=== PATIENT | male | born 2000 | race Caucasian/White ===

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

== ENCOUNTER 2022-03-03 18:13 | Emergency (ER) | payer OTHER ==
--- NOTE | 2022-03-03 18:59 | ED ---
General Adult HPI - General Chief complaint: Urogenital Stated complaint: Male Time Seen by Provider: 03/03/22 18:46 Source: patient Mode of arrival: ambulatory Limitations: no limitations - History of Present Illness Initial comments: Patient presents to the ED complaining of having right testicular swelling and pain for the past 2 days or so. Patient states that he has had similar symptoms in the past without explanation. Patient states that he had surgery for an undescended left testicle as an . Patient admits to being sexually active with multiple partners. Patient denies known history of STD. Patient denies known trauma or injury, fever or chills, headache, chest pain, dyspnea, dizziness, abdominal pain, back or flank pain, nausea or vomiting, penile swelling, penile discharge, dysuria/hematuria/urinary frequency/urinary symptoms, or any other symptoms or complaints. - Related Data Previous Rx's Medication Instructions Recorded Doxycycline Hyclate 100 mg PO BID 10 Days #20 tab 03/03/22 Allergies Allergy/AdvReac Type Severity Reaction Status Date / Time amoxicillin Allergy Rash/Hives Verified 03/03/22 20:04 clavulanic acid Allergy Rash/Hives Verified 03/03/22 20:04 [From Augmentin] Review of Systems ROS Statement: Those systems with pertinent positive or pertinent negative responses have been documented in the HPI. ROS Other: All systems not noted in ROS Statement are negative. Past Medical History Past Medical History: No Reported History History of Any Multi-Drug Resistant Organisms: None Reported Additional Past Surgical History / Comment(s): L testicle surgery Past Psychological History: ADD/ADHD Smoking Status: Current every day smoker, Never smoker Past Alcohol Use History: None Reported Past Drug Use History: Marijuana General Exam Limitations: no limitations General appearance: alert, in no apparent distress Head exam: Present: atraumatic, normocephalic Eye exam: Present: normal appearance, EOMI ENT exam: Present: mucous membranes moist Respiratory exam: Present: normal lung sounds bilaterally. Absent: respiratory distress, wheezes, rales, rhonchi, stridor Cardiovascular Exam: Present: regular rate, normal rhythm, normal heart sounds, other (Normal radial pulses bilaterally) GI/Abdominal exam: Present: soft. Absent: distended, tenderness, guarding exam: Present: other (Mild right testicular tenderness; no hernia mass or defect is appreciated; normal right cremasteric reflex). Absent: urethral discharge, scrotal swelling Back exam: Absent: CVA tenderness (R), CVA tenderness (L) Neurological exam: Present: alert, oriented X3 Psychiatric exam: Present: normal affect, normal mood Skin exam: Present: warm, dry, intact, normal color Course Vital Signs 03/03/22 18:25 Temperature 99.1 F Pulse Rate 111 H Respiratory 16 Rate Blood Pressure 131/78 O2 Sat by Pulse 99 Oximetry - Reevaluation(s) Reevaluation #1: 03/03/22 21:40 Patient denies development of any new symptoms while in the ED. Patient is aware of his test results, and he feels comfortable being discharged home at this time. Patient was counseled about testicular pain and epididymitis. Patient was clearly explained return and follow-up instructions, and he feels comfortable with this plan. Medical Decision Making - Medical Decision Making Patient's UA and scrotal ultrasound are fairly unremarkable. Patient is sexually active, and he has mild right testicular tenderness on examination. Given these findings, I suspect possible epididymitis as the etiology of the patient's pain. Will treat the patient with a dose of IM Rocephin in the ED and discharge the patient home on a course of oral doxycycline. Patient was instructed to follow up closely with his primary care provider. Patient feels comfortable this plan. - Lab Data Lab Results 03/03/22 Range/Units 20:28 Urine Color Yellow Urine Appearance Clear (Clear) Urine pH 6.0 (5.0-8.0) Ur Specific [place] 1.030 (1.001-1.035) Urine Protein Negative (Negative) Urine Glucose (UA) Negative (Negative) Urine Ketones Negative (Negative) Urine Blood Negative (Negative) Urine Nitrite Negative (Negative) Urine Bilirubin Negative (Negative) Urine Urobilinogen <2.0 (<2.0) mg/dL Ur Leukocyte Esterase Negative (Negative) - Radiology Data Scrotal ultrasound: No evidence of testicular torsion or mass. Normal left and right epididymis. Disposition Clinical Impression: Testicular pain, right Narrative: Possible epididymitis Disposition: HOME SELF-CARE Condition: Stable Instructions (If sedation given, give patient instructions): Epididymitis (ED), Testicle Pain (ED) Additional Instructions: Return to the ER immediately should you develop new or worsening pain, increased swelling, a fever, shortness of breath, feeling dizzy or faint, or new or worsening symptoms. Follow up closely with your primary care provider. Prescriptions: Doxycycline Hyclate 100 mg PO BID 10 Days #20 tab Is patient prescribed a controlled substance at d/c from ED?: No Referrals: Edith Mcdaniel DO [Primary Care Provider] - 1-2 days Time of Disposition: 21:45
--- NOTE | 2022-03-03 20:25 | US ---
EXAMINATION TYPE: US scrotum with doppler. Grayscale and color Doppler Duplex imaging performed of t micheal scrotum. DATE OF EXAM: 03/03/2022 COMPARISON: NONE CLINICAL HISTORY: Right testicular pain. EXAM MEASUREMENTS: TESTICLES: Right Testicle: 3.9 x 1.9 x 2.7 cm Left Testicle: 4.0 x 1.8 x 2.5 cm EPIDIDYMIS HEAD: Right Epididymis: 1.1 cm Left Epididymis: 0.8 cm Doppler performed to assess for testicular vascularity; good bilateral color flow and waveforms are s een. There is no evidence of testicular torsion. Presence of hydroceles: no Presence of varicoceles: no IMPRESSION: No evidence of testicular torsion or mass. Normal left and right epididymis.
[2022-03-03 21:23] LABS: Appearance,Urine Clear (Clear); Bilirubin,Urine Negative (Negative); Blood,Urine Negative (Negative); Color,Urine Yellow; Glucose,Urine (UA) Negative (Negative); Ketones,Urine Negative (Negative); Leukocyte Esterase,Urine Negative (Negative); Nitrite,Urine Negative (Negative); Protein,Urine Negative (Negative); Urobilinogen,Urine <2.0 mg/dL (<2.0)
[2022-03-03] MEDS ORDERED: cefTRIAXone 1 GM VIAL IM STA (21:32)
[2022-03-03] MEDS ORDERED: cefTRIAXone 250 MG VIAL IM STA (21:44)
[2022-03-03 22:02] VITALS: BP 136/84; PULSE 92; RESP 20; TEMP 98.9
== END 2022-03-03 22:00 | disposition home or self-care (01) ==
LOC: EC 18:13
DX: N50.811 Right testicular pain (principal); F17.200 Nicotine dependence, unspecified, uncomplicated; F12.90 Cannabis use, unspecified, uncomplicated
CPT/HCPCS: 81003; 87491; 87591; 93975; 76870; 99284; 96372; J0696

== ENCOUNTER 2022-03-05 08:58 | Emergency (ER) | payer OTHER ==
[2022-03-05 09:03] VITALS: TEMP 97.7
[2022-03-05] MEDS ORDERED: ACET/COD 300 MG/30 MG STARTER PACK 6 TAB BTL PO STA (09:31)
[2022-03-05] MEDS ORDERED: ONDANSETRON 4 MG ODT STARTER PACK 2 TAB BTL PO STA (09:31)
--- NOTE | 2022-03-05 09:32 | ED ---
General Adult HPI - General Chief complaint: Recheck/Abnormal Lab/Rx Stated complaint: Lower extremity Pain Time Seen by Provider: 03/05/22 09:14 Source: patient, RN notes reviewed Mode of arrival: ambulatory Limitations: no limitations - History of Present Illness Initial comments: 22-year-old male presents emergency Department with chief complaint right-sided testicular pain. Patient states this is having the past 2 seen here a few days ago was diagnosed with possible epididymitis. Patient states his present antibiotics which are doxycycline, did receive Rocephin. Patient states the episode of vomiting after taking Anything on her stomach. He complains of moderate discomfort in the right side. Patient denies any trauma he states he was icing and which has helped. No abdominal pain no fevers chills no other complaints. - Related Data Previous Rx's Medication Instructions Recorded Doxycycline Hyclate 100 mg PO BID 10 Days #20 tab 03/03/22 Ibuprofen [Motrin] 600 mg PO Q8HR PRN #20 tab 03/05/22 Allergies Allergy/AdvReac Type Severity Reaction Status Date / Time amoxicillin Allergy Rash/Hives Verified 03/05/22 09:01 clavulanic acid Allergy Rash/Hives Verified 03/05/22 09:01 [From Augmentin] Review of Systems ROS Statement: Those systems with pertinent positive or pertinent negative responses have been documented in the HPI. ROS Other: All systems not noted in ROS Statement are negative. Past Medical History Past Medical History: No Reported History History of Any Multi-Drug Resistant Organisms: None Reported Additional Past Surgical History / Comment(s): L testicle surgery Past Psychological History: ADD/ADHD Smoking Status: Current every day smoker, Never smoker Past Alcohol Use History: None Reported Past Drug Use History: Marijuana General Exam Limitations: no limitations General appearance: alert, in no apparent distress Head exam: Present: atraumatic, normocephalic, normal inspection Respiratory exam: Present: normal lung sounds bilaterally. Absent: respiratory distress, wheezes, rales, rhonchi, stridor Cardiovascular Exam: Present: regular rate, normal rhythm, normal heart sounds. Absent: systolic murmur, diastolic murmur, rubs, gallop, clicks GI/Abdominal exam: Present: soft, normal bowel sounds. Absent: distended, tenderness, guarding, rebound, rigid Course Vital Signs 03/05/22 09:01 Temperature 97.7 F Pulse Rate 78 Respiratory 16 Rate Blood Pressure 148/94 O2 Sat by Pulse 100 Oximetry Medical Decision Making - Medical Decision Making Patient ultrasound and urinalysis pending cultures. Patient was treated for epididymitis. Patient's had issues in the past with testicular pain in which she was doing pelvic exercises. Patient we treated for pain control this time return parameters were discussed. Patient has no acute changes. Disposition Clinical Impression: Testicular pain, right Disposition: HOME SELF-CARE Condition: Stable Instructions (If sedation given, give patient instructions): Testicle Pain (ED), Scrotal Pain (ED) Additional Instructions: Please return to the Emergency Department if symptoms worsen or any other concerns. Prescriptions: Ibuprofen [Motrin] 600 mg PO Q8HR PRN #20 tab PRN Reason: Pain Is patient prescribed a controlled substance at d/c from ED?: No Referrals: Edith Mcdaniel DO [Primary Care Provider] - 1-2 days Time of Disposition: 09:32
[2022-03-05 10:04] VITALS: BP 118/70; PULSE 74; RESP 18
== END 2022-03-05 10:05 | disposition home or self-care (01) ==
LOC: EC 08:58
DX: N50.811 Right testicular pain (principal); F90.9 Attention-deficit hyperactivity disorder, unspecified type; F12.90 Cannabis use, unspecified, uncomplicated; Z88.1 Allergy status to other antibiotic agents
CPT/HCPCS: 99283; S0119